=== PATIENT | female | born 1955 | race Hispanic/Latino ===

== ENCOUNTER 2021-12-08 08:45 | Observation (INO) | payer OTHER ==
[2021-12-03 12:28] LABS: BASOPHILS % (AUTO) 0.5 % (0.0-5.0); EOSINOPHILS % (AUTO) 1.5 % (0.0-8.0); HEMATOCRIT 44.1 % (36-48); LYMPHOCYTES % (AUTO) 32.2 % (21.0-51.0); MEAN CORPUSCULAR HEMOGLOBIN 30.2 pg (27.0-33.0); MEAN CORPUSCULAR HGB CONC 32.4 g/dL (32.0-36.0); MONOCYTES % (AUTO) 8.1 % (3.0-13.0); NEUTROPHILS % (AUTO) 57.4 % (40.0-77.0); PLATELET COUNT (AUTO) 285 K/uL (130-400); RED BLOOD CELL COUNT(AUTO) 4.74 MIL/uL (4.00-5.50); RED CELL DISTRIBUTION WIDTH 13.2 % (11.0-15.5); WHITE BLOOD COUNT (AUTO) 7.9 K/uL (4.8-10.8)
[2021-12-03 12:50] LABS: CREATININE 0.7 mg/dL (0.5-1.5); POTASSIUM 4.4 mmol/L (3.5-5.1)
[2021-12-03 12:59] LABS: INR 0.93 (0.85-1.15); PROTHROMBIN TIME 9.9 SEC (9.6-11.6)
[2021-12-03 13:00] LABS: PARTIAL THROMBOPLASTIN TIME 24.9 SEC (26.3-35.5)
[2021-12-03 13:38] VITALS: BP 138/63
[2021-12-04 09:54] VITALS: BP 138/68
[~2021-12-08] VITALS: Ht 160 cm; Wt 62.6 kg
[2021-12-08] VITALS (26 sets, daily range): BP systolic 112–146; BP diastolic 48–72
[~2021-12-08 08:45] MED LIST: ALEN70TA80 PO; ASPI-1026 PO; ATOR10TA69 PO; CARV6.25 PO; OLME40TA18 PO
[2021-12-08] MEDS ORDERED: CEFAZOLIN SODIUM 1 GM VIAL ONE (09:45)
[2021-12-08] MEDS ORDERED: LACTATED RINGERS 1000ML 1,000 ML IV ONE (09:45)
[2021-12-08] MEDS: CEFAZOLIN SODIUM 2 GM VIAL IV SCH ×2 (10:00→13:43)
[2021-12-08] MEDS ORDERED: AMIO200T68 PO (10:09)
[2021-12-08] MEDS ORDERED: HYDROCODONE/ACETAMINOPHEN 10/325 MG TAB PO PRN (12:00)
[2021-12-08] MEDS ORDERED: LIDOCAINE HCL-MPF 1% 2ML VIAL IV PRN (12:00)
[2021-12-08] MEDS ORDERED: KCL 20 MEQ ERTAB PO PRN (12:00)
[2021-12-08] MEDS ORDERED: FERROUS FUMARATE 324 MG TABLET PO PRN (12:00)
[2021-12-08] MEDS ORDERED: POTASSIUM CHLORIDE 20MEQ/100ML 100 ML IV PRN (12:00)
[2021-12-08] MEDS ORDERED: KETOROLAC 15MG/ML VIAL (15MG/ML) IV PRN (12:00)
[2021-12-08] MEDS ORDERED: POTASSIUM CHLORIDE 10% ELIXIR 20 MEQ/15 ML UDCUP PO PRN (12:00)
[2021-12-08] MEDS: 0.9%NACL 1000ML 1,000 ML IV SCH ×2 (12:00→17:35)
[2021-12-08] MEDS ORDERED: HYDROCODONE/ACETAMINOPHEN 5/325 MG TAB PO PRN (12:00)
[2021-12-08] MEDS: TRAMADOL HCL 50 MG TABLET PO SCH ×3 (12:00→23:27)
[2021-12-08] MEDS ORDERED: MORPHINE 4 MG SYG IVP PRN (12:00)
[2021-12-08] MEDS: ACETAMINOPHEN 500 MG TABLET PO SCH ×2 (12:00→19:41)
[2021-12-08] MEDS ORDERED: ROCURONIUM 10MG/1ML SYR 10 MG/ML ML ONE (12:44)
[2021-12-08] MEDS ORDERED: LIDOCAINE PF 100MG/5ML (2%) SYRINGE 5ML ONE (12:44)
[2021-12-08] MEDS ORDERED: PROPOFOL 10 MG/ML 20ML VIAL IV ONE ×2 (12:44→15:04)
[2021-12-08] MEDS ORDERED: FENTANYL CITRATE PF 50 MCG/1 ML 2ML VIAL ONE (12:44)
[2021-12-08] MEDS ORDERED: TRANEXAMIC ACID 1000MG/10ML ONE (12:58)
[2021-12-08] MEDS ORDERED: PROPOFOL 1000 MG/100 ML 100 ML IV ONE (13:01)
[2021-12-08] MEDS ORDERED: ROPIVACAINE 0.5% 5MG/ML 30ML IJ ONE (13:01)
[2021-12-08] MEDS ORDERED: EPHEDRINE SULFATE 50 MG/ML AMPULE ONE (13:51)
[2021-12-08] MEDS ORDERED: ONDANSETRON 4MG INJ ONE (14:13)
[2021-12-08] MEDS ORDERED: ROPIVICAINE 250MG+KETOROLAC 15MG+EPINEPHRINE 0.3+CLONIDINE 80 IV PRN ×10 (14:30→16:30)
[2021-12-08] MEDS ORDERED: SUGAMMADEX SODIUM 200 MG/2 ML VIAL IV ONE (15:04)
[2021-12-08] MEDS ORDERED: MEPERIDINE-PF 25 MG/ML SYG ONE (15:45)
[2021-12-08] MEDS: ONDANSETRON 4MG INJ IVP PRN (15:51)
[2021-12-08] MEDS: CEFAZOLIN SODIUM 1 GM VIAL IVP SCH ×2 (17:00→23:27)
[2021-12-08] MEDS: FAMOTIDINE 20MG TAB PO SCH (19:40)
[2021-12-08] MEDS: ASPIRIN 81 MG EC TAB PO SCH (19:41)
[2021-12-09] VITALS (7 sets, daily range): BP systolic 118–156; BP diastolic 53–62
[2021-12-09] MEDS: CEFAZOLIN SODIUM 2 GM VIAL IV SCH (02:40)
[2021-12-09] MEDS: ACETAMINOPHEN 500 MG TABLET PO SCH ×3 (03:57→21:51)
[2021-12-09 04:22] LABS: MEAN CORPUSCULAR HEMOGLOBIN 30.4 pg (27.0-33.0); MEAN CORPUSCULAR HGB CONC 33.2 g/dL (32.0-36.0); MEAN CORPUSCULAR VOLUME 91.6 fL (79-99); RED BLOOD CELL COUNT(AUTO) 4.15 MIL/uL (4.00-5.50); RED CELL DISTRIBUTION WIDTH 13.1 % (11.0-15.5); WHITE BLOOD COUNT (AUTO) 12.6 K/uL (4.8-10.8)
[2021-12-09 04:34] LABS: CREATININE 0.6 mg/dL (0.5-1.5); POTASSIUM 4.4 mmol/L (3.5-5.1)
[2021-12-09] MEDS: TRAMADOL HCL 50 MG TABLET PO SCH ×4 (05:06→23:39)
[2021-12-09] MEDS ORDERED: ROPIVICAINE 250MG+KETOROLAC 15MG+EPINEPHRINE 0.3+CLONIDINE 80 IV PRN ×5 (08:00)
[2021-12-09] MEDS: 0.9%NACL 1000ML 1,000 ML IV SCH (08:00)
[2021-12-09] MEDS: LOSARTAN 100 MG TABLET PO SCH (09:00)
[2021-12-09] MEDS: CARVEDILOL 6.25 MG TABLET PO SCH (09:00)
[2021-12-09] MEDS: AMIODARONE 200 MG TABLET PO SCH (10:13)
[2021-12-09] MEDS: ASPIRIN 81 MG EC TAB PO SCH ×2 (10:13→21:51)
[2021-12-09] MEDS: FAMOTIDINE 20MG TAB PO SCH ×2 (10:13→21:51)
[2021-12-09] MEDS: POLYETHYLENE GLYCOL 3350 17 GM POWD.PACK PO SCH (10:14)
[2021-12-09] MEDS: ONDANSETRON 4MG INJ IVP PRN (10:17)
[2021-12-10 04:00] VITALS: BP 148/68
[2021-12-10] MEDS: CEFAZOLIN SODIUM 2 GM VIAL IV SCH (05:00)
[2021-12-10] MEDS: ACETAMINOPHEN 500 MG TABLET PO SCH ×2 (06:04→14:54)
[2021-12-10] MEDS: TRAMADOL HCL 50 MG TABLET PO SCH ×2 (06:04→11:50)
[2021-12-10 07:05] VITALS: BP 133/60
[2021-12-10] MEDS: LOSARTAN 100 MG TABLET PO SCH (09:32)
[2021-12-10] MEDS: AMIODARONE 200 MG TABLET PO SCH (09:32)
[2021-12-10] MEDS: FAMOTIDINE 20MG TAB PO SCH (09:33)
[2021-12-10] MEDS: ASPIRIN 81 MG EC TAB PO SCH (09:33)
[2021-12-10] MEDS: POLYETHYLENE GLYCOL 3350 17 GM POWD.PACK PO SCH (09:33)
[2021-12-10] MEDS: CARVEDILOL 6.25 MG TABLET PO SCH (09:33)
[2021-12-10 10:50] VITALS: BP 139/62
[2021-12-10 15:05] VITALS: BP 146/68
[2021-12-11] MEDS ORDERED: BISACODYL 10 MG SUPP.RECT RC PRN (12:00)
== END 2021-12-10 17:10 ==
LOC: DAH 08:45 → DAHIP 08:46 → DAH 08:46 → 4DH 16:29
PROVIDERS: ADMIT Orthopaedic Surgery; ATTEND Orthopaedic Surgery
DX: M17.11 Unilateral primary osteoarthritis, right knee (principal); Z20.822 Contact with and (suspected) exposure to COVID-19; I10 Essential (primary) hypertension; R26.9 Unspecified abnormalities of gait and mobility; E78.5 Hyperlipidemia, unspecified; Z79.899 Other long term (current) drug therapy
CPT/HCPCS: 0055T; 27447; 36415; 64447; 76942; 80048; 85025; 85027; 85610; 85730; 87635; 87641; 96374; 96375; 96376; 97039; C9803; G0378; J0690; J1885; J2001; J2175; J2270; J2405; J2704; J2795; J3010; J3490; J7030; J7120

== ENCOUNTER 2022-04-27 07:26 | Observation (INO) | payer OTHER ==
[2022-04-22 15:31] LABS: BASOPHILS % (AUTO) 0.4 % (0.0-5.0); EOSINOPHILS % (AUTO) 2.1 % (0.0-8.0); HEMATOCRIT 42.9 % (36-48); LYMPHOCYTES % (AUTO) 30.5 % (21.0-51.0); MEAN CORPUSCULAR HEMOGLOBIN 30.1 pg (27.0-33.0); MEAN CORPUSCULAR HGB CONC 32.9 g/dL (32.0-36.0); MEAN CORPUSCULAR VOLUME 91.5 fL (79-99); MONOCYTES % (AUTO) 9.7 % (3.0-13.0); NEUTROPHILS % (AUTO) 57.1 % (40.0-77.0); PLATELET COUNT (AUTO) 304 K/uL (130-400); RED BLOOD CELL COUNT(AUTO) 4.69 MIL/uL (4.00-5.50); RED CELL DISTRIBUTION WIDTH 14.1 % (11.0-15.5); WHITE BLOOD COUNT (AUTO) 8.4 K/uL (4.8-10.8)
[2022-04-22 15:40] LABS: CREATININE 0.7 mg/dL (0.5-1.5); POTASSIUM 4.3 mmol/L (3.5-5.1)
[2022-04-22 15:42] LABS: INR 0.93 (0.85-1.15); PROTHROMBIN TIME 9.9 SEC (9.6-11.6)
[2022-04-22 15:43] LABS: PARTIAL THROMBOPLASTIN TIME 24.8 SEC (26.3-35.5)
[2022-04-26 11:10] VITALS: BP 143/75
[2022-04-27] VITALS (21 sets, daily range): BP systolic 123–150; BP diastolic 59–82
[~2022-04-27] VITALS: Ht 162.6 cm; Wt 88.5 kg
[~2022-04-27 07:26] MED LIST changes: +AMIO200T68 PO; +ASPI-1012 PO; -ASPI-1026 PO; +TRANEXAMIC ACID 1000MG/10ML IJ SCH
[2022-04-27] MEDS: CEFAZOLIN SODIUM 1 GM VIAL IVP SCH ×3 (08:00→20:06)
[2022-04-27] MEDS: LACTATED RINGERS 1000ML 1,000 ML IV SCH ×2 (08:24→13:32)
[2022-04-27] MEDS ORDERED: TRANEXAMIC ACID 1000MG/10ML ONE (08:53)
[2022-04-27] MEDS ORDERED: ROPIVACAINE 0.5% 5MG/ML 30ML IJ ONE (09:59)
[2022-04-27] MEDS ORDERED: POTASSIUM CHLORIDE 20MEQ/100ML 100 ML IV PRN (10:30)
[2022-04-27] MEDS ORDERED: LIDOCAINE HCL-MPF 1% 2ML VIAL IV PRN (10:30)
[2022-04-27] MEDS: 0.9%NACL 1000ML 1,000 ML IV SCH ×2 (10:30→17:45)
[2022-04-27] MEDS ORDERED: POTASSIUM CHLORIDE 10% ELIXIR 20 MEQ/15 ML UDCUP PO PRN (10:30)
[2022-04-27] MEDS: ACETAMINOPHEN 500 MG TABLET PO SCH ×2 (10:30→17:46)
[2022-04-27] MEDS ORDERED: HYDROCODONE/ACETAMINOPHEN 5/325 MG TAB PO PRN (10:30)
[2022-04-27] MEDS ORDERED: SUCCINYLCHOLINE 200MG/10ML SYR ONE ×2 (11:50→11:52)
[2022-04-27] MEDS ORDERED: LIDOCAINE PF 100MG/5ML (2%) SYRINGE 5ML ONE (11:50)
[2022-04-27] MEDS ORDERED: ONDANSETRON 4MG INJ ONE ×2 (11:51→12:59)
[2022-04-27] MEDS ORDERED: GLYCOPYRROLATE 1 MG/5 ML SYRINGE ONE (11:52)
[2022-04-27] MEDS ORDERED: NEOSTIGMINE 5MG/5ML SYR IV ONE (11:52)
[2022-04-27] MEDS ORDERED: FENTANYL CITRATE PF 50 MCG/1 ML 2ML VIAL ONE (11:52)
[2022-04-27] MEDS ORDERED: PROPOFOL 10 MG/ML 20ML VIAL IV ONE (11:52)
[2022-04-27] MEDS ORDERED: ROCURONIUM 10MG/1ML SYR 10 MG/ML ML ONE ×2 (11:52→12:53)
[2022-04-27] MEDS: TRAMADOL HCL 50 MG TABLET PO SCH ×3 (12:00→23:37)
[2022-04-27] MEDS ORDERED: EPHEDRINE SULFATE 50 MG/ML AMPULE ONE (12:16)
[2022-04-27] MEDS ORDERED: TRANEXAMIC ACID 1000MG/10ML IV ONE (12:33)
[2022-04-27] MEDS ORDERED: HYDROMORPHONE 1 MG INJ ONE (15:11)
[2022-04-27] MEDS: FAMOTIDINE 20MG TAB PO SCH (20:06)
[2022-04-27] MEDS: ASPIRIN 81 MG EC TAB PO SCH (20:07)
[2022-04-27] MEDS: CARVEDILOL 6.25 MG TABLET PO SCH (20:07)
[2022-04-27] MEDS: MORPHINE 4 MG SYG IVP PRN (20:14)
[2022-04-27] MEDS ORDERED: HYDR-4154 PO (20:27)
[2022-04-27] MEDS ORDERED: HYDRALAZINE 25MG TABLET PO PRN (20:30)
[2022-04-28] MEDS: ONDANSETRON 4MG INJ IVP PRN ×2 (00:09→08:10)
[2022-04-28] MEDS: ACETAMINOPHEN 500 MG TABLET PO SCH ×3 (01:57→18:32)
[2022-04-28] MEDS ORDERED: CEFAZOLIN SODIUM 1 GM VIAL ONE (04:17)
[2022-04-28] MEDS: CEFAZOLIN SODIUM 1 GM VIAL IVP SCH (04:24)
[2022-04-28] MEDS: 0.9%NACL 1000ML 1,000 ML IV SCH (04:24)
[2022-04-28] MEDS: MORPHINE 4 MG SYG IVP PRN (04:30)
[2022-04-28 04:46] VITALS: BP 154/76
[2022-04-28 04:50] LABS: HEMATOCRIT 34.9 % (36-48); MEAN CORPUSCULAR HEMOGLOBIN 30.1 pg (27.0-33.0); MEAN CORPUSCULAR HGB CONC 34.7 g/dL (32.0-36.0); MEAN CORPUSCULAR VOLUME 86.8 fL (79-99); RED BLOOD CELL COUNT(AUTO) 4.02 MIL/uL (4.00-5.50); RED CELL DISTRIBUTION WIDTH 13.2 % (11.0-15.5); WHITE BLOOD COUNT (AUTO) 15.1 K/uL (4.8-10.8)
[2022-04-28 05:09] LABS: CREATININE 0.6 mg/dL (0.5-1.5); POTASSIUM 3.6 mmol/L (3.5-5.1)
[2022-04-28] MEDS: KCL 20 MEQ ERTAB PO PRN (06:25)
[2022-04-28] MEDS: TRAMADOL HCL 50 MG TABLET PO SCH ×4 (06:25→23:03)
[2022-04-28 08:00] VITALS: BP 153/76
[2022-04-28] MEDS: POLYETHYLENE GLYCOL 3350 17 GM POWD.PACK PO SCH (08:08)
[2022-04-28] MEDS: HYDROCODONE/ACETAMINOPHEN 10/325 MG TAB PO PRN (08:09)
[2022-04-28] MEDS: FAMOTIDINE 20MG TAB PO SCH ×2 (08:10→19:24)
[2022-04-28] MEDS: ASPIRIN 81 MG EC TAB PO SCH ×2 (08:10→19:24)
[2022-04-28] MEDS: LOSARTAN 100 MG TABLET PO SCH (11:24)
[2022-04-28] MEDS: CARVEDILOL 6.25 MG TABLET PO SCH ×2 (11:24→19:24)
[2022-04-28] MEDS: AMIODARONE 200 MG TABLET PO SCH (11:24)
[2022-04-28 12:00] VITALS: BP 155/67
[2022-04-28 16:51] VITALS: BP 150/72
[2022-04-28 20:00] VITALS: BP 148/66
[2022-04-29] VITALS: BP 144/69
[2022-04-29] MEDS: ACETAMINOPHEN 500 MG TABLET PO SCH ×2 (01:40→11:22)
[2022-04-29 04:00] VITALS: BP 150/75
[2022-04-29] MEDS: TRAMADOL HCL 50 MG TABLET PO SCH ×2 (05:07→11:21)
[2022-04-29] MEDS: HYDROCODONE/ACETAMINOPHEN 10/325 MG TAB PO PRN (06:36)
[2022-04-29 08:00] VITALS: BP 129/54
[2022-04-29] MEDS: LOSARTAN 100 MG TABLET PO SCH (08:27)
[2022-04-29] MEDS: CARVEDILOL 6.25 MG TABLET PO SCH (08:28)
[2022-04-29] MEDS: FAMOTIDINE 20MG TAB PO SCH (08:29)
[2022-04-29] MEDS: KCL 20 MEQ ERTAB PO PRN (08:29)
[2022-04-29] MEDS: ASPIRIN 81 MG EC TAB PO SCH (08:29)
[2022-04-29] MEDS: POLYETHYLENE GLYCOL 3350 17 GM POWD.PACK PO SCH (08:30)
[2022-04-29] MEDS: AMIODARONE 200 MG TABLET PO SCH (09:00)
[2022-04-29 11:33] VITALS: BP 148/68
[2022-04-29 16:00] VITALS: BP 130/64
[2022-04-30] MEDS ORDERED: BISACODYL 10 MG SUPP.RECT RC PRN (10:30)
== END 2022-04-29 17:57 | disposition home or self-care (01) ==
LOC: DAH 07:26 → DAHIP 07:27 → DAH 07:27 → 4CH 16:21
PROVIDERS: ADMIT Orthopaedic Surgery; ATTEND Orthopaedic Surgery
DX: M17.12 Unilateral primary osteoarthritis, left knee (principal); Z20.822 Contact with and (suspected) exposure to COVID-19; K59.00 Constipation, unspecified; R33.9 Retention of urine, unspecified; Z79.899 Other long term (current) drug therapy; Z98.890 Other specified postprocedural states; Z79.82 Long term (current) use of aspirin
CPT/HCPCS: 80048 ×2; 85025; 85610; 85730; 87426; 36415 ×2; 93005; 27447; 96374; 96375 ×2; 76942; 64447; 96376; 85027; 97039 ×4; 97164; 97116 ×4; 97530 ×2; A6260; G0378 ×50; J7030 ×2; A4649 ×4; C1776; J7120; J3010; J0690 ×3; J1170; J3490 ×4; J0330 ×2; J2710; J2001; J2704; J2405 ×5; J2270 ×2; J2795; G0168; A4930; A6255; A6254; A5120 ×2; A4215; A4223; A4222; A4221; A4663